=== PATIENT | female | born 1970 | race Caucasian/White ===

== ENCOUNTER 2018-07-26 07:41 | Emergency (ER) | payer MEDICAID ==
[~2018-07-26] VITALS: Ht 167.6 cm; Wt 74.8 kg
[2018-07-26 07:48] VITALS: BP 119/74
[2018-07-26] MEDS ORDERED: PHENAZOPYRIDINE HCL 100 MG TAB PO ONE (10:30)
[2018-07-26] MEDS ORDERED: cefTRIAXone SOD 500 MG VL IM ONE (10:30)
== END 2018-07-26 10:49 | disposition home or self-care (01) ==
LOC: ER 07:41
CPT/HCPCS: 81002 ×2; 96372 ×2; 99283; J0696 ×2